=== PATIENT | female | born 1935 | race Caucasian/White ===

== ENCOUNTER 2020-04-03 09:45 | Emergency (ER) | payer MEDICARE, OTHER ==
[~2020-04-03] VITALS: Ht 154.9 cm; Wt 68.0 kg
[~2020-04-03 09:45] MED LIST: ASPI-1264 PO; LORA-512 PO; LORA0.5T PO; LOSA50TA64 PO
[2020-04-03] MEDS ORDERED: POLY17PO10 PO (11:29)
[2020-04-03 11:34] VITALS: BP 136/86
[2020-04-03 11:47] LABS: OCCULT BLOOD STOOL POSITIVE (Neg)
== END 2020-04-03 11:51 | disposition home or self-care (01) ==
LOC: ER 09:46
DX: K59.00 Constipation, unspecified (principal); Z90.710 Acquired absence of both cervix and uterus; Z79.82 Long term (current) use of aspirin; Z79.899 Other long term (current) drug therapy
CPT/HCPCS: 82272; 99283

== ENCOUNTER 2025-02-16 11:27 | Emergency (ER) | payer OTHER ==
[~2025-02-16] VITALS: Ht 154.9 cm; Wt 62.7 kg
[~2025-02-16 11:27] MED LIST changes: -ASPI-1264 PO; +ATOR20TA PO; +CLOP75TA34 PO; +DESV25TA2; -LORA-512 PO; -LOSA50TA64 PO
[2025-02-16 11:36] VITALS: BP 121/63; PULSE 79; RESP 15; O2SAT 100
--- NOTE | 2025-02-16 12:24 | RADIOLOGY REPORT ---
Right HIP RADIOGRAPH. CLINICAL INDICATION: RIGHT HIP PAIN TECHNIQUE: 4 views of the right hip were obtained. FINDINGS: There is no evidence of fracture, subluxation or dislocation.Moderate right hip osteoarthri tis. atherosclerosis The bony mineralization is normal.No radiopaque foreign body is identified. IMPRESSION: 1. No evidence of acute bony injury.
[2025-02-16] MEDS ORDERED: DICL20GE TOP (13:00)
--- NOTE | 2025-02-16 13:00 | Physician Documentation ---
History of Present Illness ~ Chief Complaint: Hip pain Stated Complaint: FALL Time Seen by MD: 12:00 Primary Medical Doctor: DAVID JACK 89-year-old female presents to the ED with a complaint of right posterior hip pain after falling a week ago.. she has been able to ambulate without difficulty and she is using a walker now after falling . Denies severe pain that and reports that she has been taking Tylenol occasionally.. Day of Onset: Feb 16, 2025 Medication Reconciliation Allergies: Coded Allergies: No Known Allergies (Unverified , 02/16/25) Scheduled Atorvastatin Calcium* (Lipitor*), 1 TAB PO DAILY, (Reported) Clopidogrel Bisulfate (Clopidogrel), 1 TAB PO DAILY, (Reported) Diclofenac Sodium (Voltaren Arthritis Pain), 1 APPLIC TOP BID Lorazepam* (Ativan*), 1 TAB PO DAILY, (Reported) Miscellaneous Medications Desvenlafaxine Succinate (Desvenlafaxine Succinate ER), (Reported) Past Medical History Past Medical History: CVA/TIA/Stroke, Hypertension, Anxiety Past Surgical History: hysterectomy, other Patient History: FH: Alzheimers disease FATHER FH: Parkinson's disease sisters sisters sisters Alcohol Use: None Review of Systems All Other Systems at this time: Reviewed and Negative Physical Exam Vital Signs: Temperature: 97.9, Source: Temporal, Heart Rate: 79, Respiratory Rate: 15, BP: 121/63, Pulse Oximetry: 100, Weight: 62.730 Oxygen Flow Rate: 0 Physical Exam General: Alert, no apparent distress. Neck: Full range of motion. back: Tender to the right posterior sacral region via palpation Skin: Normal color, warm and dry. No edema, no ecchymosis. Progress Results/Orders Results/Orders Vital Signs 02/16/25 02/16/25 11:36 13:21 Temp 97.9 97.9 Pulse 79 Resp 15 B/P (MAP) 121/63 Pulse Ox 100 O2 Flow Rate 0 Medical Decision Making Findings Treat patient for pain and inflammation advise her to reach out to primary care for further evaluation and/or physical therapy Per my interpretation patient's x-rays I did not appreciate any signs of acute fracture Differential Dx:Considerations: Include: Avascular necrosis, Arthritis, Arthritis-Rheumatoid, Arthritis-Septic, Bursitis, Contusion, Dislocation, DJD, Fracture-femur, Fracture-hip, Fracture-open, Fracture-pelvis, Gout, Hernia, [id number] dz., Neurovascular injury, Slip capital femoral epip, Sprain, Transient synovitis, Other Departure Disposition: HOME / SELF CARE / HOMELESS Impression: Primary Impression: Hip pain Condition: Stable Discharge Instructions: Contusion (Bruise) Referrals: NO PRIMARY CARE PROVIDER (PCP) Prescriptions Diclofenac Sodium (Voltaren Arthritis Pain) 1 % Gel..gram. 1 APPLIC TOP BID for pain for 10 Days, #30 GM Prov: NEFTALY SMITH NP 02/16/25 Education Educated: Patient Educated regarding: diagnosis Signature Scribe Signature: y Attestation: Scribed for Neftaly Smith [employer] Flooring Installer by Neftaly Ferrari NP . 02/16/25 17:43 NEFTALY SMITH NP Feb 16, 2025 13:00
[2025-02-16 13:21] VITALS: TEMP 97.9
== END 2025-02-16 13:24 | disposition home or self-care (01) ==
LOC: ER 11:28
DX: M25.551 Pain in right hip (principal); I10 Essential (primary) hypertension; F41.9 Anxiety disorder, unspecified; Z86.73 Personal history of transient ischemic attack (TIA), and cerebral infarction without residual deficits; Z90.710 Acquired absence of both cervix and uterus; Z79.899 Other long term (current) drug therapy; W18.30XA Fall on same level, unspecified, initial encounter; Y93.89 Activity, other specified; Y92.89 Other specified places as the place of occurrence of the external cause; Y99.8 Other external cause status
CPT/HCPCS: 73502; 99284